=== PATIENT | male | born 1985 ===

== ENCOUNTER 2018-11-21 06:02 | Day surgery (SDC) | payer BC ==
--- NOTE | 2018-11-20 15:52 | Pre-Procedure Note/Attestation ---
Pre-Procedure Note/Attestation Complete Prior to Procedure Planned Procedure: bilateral Procedure Narrative: 1. Septoplasty 2. SMR inf right turbinate 3. SMR inf left turbinate Attestation I attest that I discussed the nature of the procedure; its benefits; risks and complications; and alternatives (and the risks and benefits of such alternatives ), prior to the procedure, with the patient (or the patient's legal congressional representative). I attest that, if there was a reasonable possibility of needing a blood transfusion, the patient (or the patient's legal congressional representative) was given the [facility] standardized written summary, pursuant to the Davide Cora Blood Safety Act ([place] Health and Safety Code # 1645, as amended). I attest that I re-evaluated the patient just prior to the surgery and that there has been no change in the patient's H&P: Anders Chery MD Nov 20, 2018 15:52
--- NOTE | 2018-11-20 15:56 | History & Physical ---
History of Present Illness General Date patient seen: Nov 16, 2018 Time patient seen: 09:45 Reason for Hospitalization: outpt surgery to repair deviated nasal septum and hypertrophied right and left inferior turbinates. Present Illness Allergies: Coded Allergies: No Known Allergies (Unverified , 11/20/18) Patient History History Provided By: Patient Healthcare decision maker patient Resuscitation status FUll code Advanced Directive on File Patient History Narrative Pt. has nasal airway obsturction not responding to over 1 month Flonase and antihistamines. Review of Systems Review of Symptoms General ROS: no weight loss or fever Psychological ROS: no depression or mood changes, no memory loss Ophthalmic ROS: no visual changes or eye irritation ENT ROS: no nasal congestion, hearing loss, dizziness. NASAL AIRWAY OBSTRUCTION. Allergy and Immunology ROS: no allergic symptoms or urticaria Hematological and Lymphatic ROS: no swollen glands, unusual bleeding or bruising Endocrine ROS: no polyuria, polydipsia, weight changes, temperature intolerance Respiratory ROS: no cough, shortness of breath, or wheezing Cardiovascular ROS: no chest pain or dyspnea on exertion Gastrointestinal ROS: denies abdominal pain, bright red blood in stool. Musculoskeletal ROS: no myalgias or arthralgias Neurological ROS: no TIA or stroke symptoms Dermatological ROS: no new or changing skin lesions, rashes or pruritis Physical Exam Physical Exam General appearance: alert, cooperative, no distress, appears stated age Head: Normocephalic, without obvious abnormality, atraumatic Eyes: conjunctivae/corneas clear. PERRL, EOM's intact. Fundi benign Throat: Lips, mucosa, and tongue normal. Teeth and gums normal NOSE: SEPTAL DEVIATION AND HYPERTROPHIED BILATERAL INFERIOR TURBINATES. Neck: supple, symmetrical, trachea midline, no adenopathy, thyroid: not enlarged, symmetric, no tenderness/mass/nodules, no carotid bruit and no JVD Lungs: clear to auscultation bilaterally Heart: regular rate and rhythm, S1, S2 normal, no murmur, click, rub or gallop Abdomen: soft, non-tender. Bowel sounds normal. No masses, no organomegaly Extremities: extremities normal, atraumatic, no cyanosis or edema Pulses: 2+ and symmetric Skin: Skin color, texture, turgor normal. No rashes or lesions Neurologic: Grossly normal NOT INDICATED-UNDER 36 YO HEALTHY MALE. Height (Feet): 5 Weight (Pounds): 195 Medications NONE Assessment/Plan Assessment/Plan: 1. Nasal septal deviation 2. Bilateral hypertrophied inferior turbinates MIPS Hospital declaration OBSERVATION level of care is warranted for this patient. Patient is a 33 year old who presents with nasal airway obstruction. Patient will be admitted as an outpt. , but if additional night(s) is/are necessary, patient will be converted to inpatient status for the entire hospitalization Disposition: Once the patient is stable to leave the hospital, I anticipate the patient will likely be discharged to the following environment: Estimated discharge date: 2 hours post surgery I spent 70 minutes on this patient's case, and minutes was dedicated to counseling and/or care coordination. Measure #407(Sepsis due to MSSA bacteremia): Age 18+ Patient treated with a beta-lactam antibiotic (Nafcillin, Oxacillin or Cefazolin) as definitive therapy. MEDICAL COMPLEXITY High complexity medical decision making (need 2/3 categories) Problem - need 4 points Acute/new problem with new plan for workup (4 points, 1 max) Acute/new problem without additional workup (3 points, 1 max) Unstable chronic problem actively being managed (2 point each, 2 max) Stable chronic problem actively being managed (1 point each, 2 max) Self-limited/transient process (constipation, muscle ache, etc) (1 point each , 2 max) Data - need 4 points Reviewed labs/imaging studies (1 points, 2 max) Independent review of imaging (EKG, xrays, etc) (2 points, 2 max) Discussed case with consult/other MD/RN (2 points, 2 max) High Risk - qualify if have one of the following: Severe exacerbation of acute problem, acute mental status change, IV narcotics , monitoring drug levels (vancomycin, INR, tacrolimus etc) Anders Chery MD Nov 20, 2018 15:56
[2018-11-21] VITALS (11 sets, daily range): BP systolic 123–133; BP diastolic 70–91
[~2018-11-21] VITALS: Ht 175.3 cm; Wt 86.2 kg
[2018-11-21] MEDS ORDERED: FLONASE ALLERG9.9 ML NS (06:32)
[2018-11-21] MEDS ORDERED: Bupivacaine w/Epi 0.5% 30ml Vial INJ ONE (07:02)
[2018-11-21] MEDS ORDERED: Lidocaine 1% 10mg/ml/Epi 0.005mg/ml 30ml vial INJ ONE (07:02)
[2018-11-21] MEDS ORDERED: Cocaine HCl 4% 4ml vial TOPIC ONE (07:02)
[2018-11-21] MEDS ORDERED: ceFAZolin sod 1 GM in D5W 55 ML IV ONE (07:15)
[2018-11-21] MEDS ORDERED: Propofol 200mg/20ml IV ONE (07:18)
[2018-11-21] MEDS ORDERED: Lidocaine 1% MPF 10mg/ml 5ml ONE (07:18)
[2018-11-21] MEDS ORDERED: Midazolam 2mg/2ml Inj ONE (07:18)
[2018-11-21] MEDS ORDERED: Ketorolac 30mg Inj ONE (07:18)
[2018-11-21] MEDS ORDERED: fentaNYL 100 mcg/2 mL IV ONE (07:18)
[2018-11-21] MEDS ORDERED: Dexamethasone 4mg/ml vial IVP ONE (07:30)
[2018-11-21] MEDS ORDERED: LR 1000ml 1,000 ML IVLG SCH (07:48)
--- NOTE | 2018-11-21 07:48 | Anethesia Preoperative Eval ---
Anesthesia Pre-op PMH/ROS General Date of Evaluation: Nov 21, 2018 Time of Evaluation: 07:25 Anesthesiologist: Jatin ASA Score: ASA 2 Mallampati Score Class I : Soft palate, uvula, fauces, pillars visible Class II: Soft palate, uvula, fauces visible Class III: Soft palate, base of uvula visible Class IV: Only hard plate visible Mallampati Classification: Class II Surgeon: Vik Diagnosis: Nasal septum deviation Surgical Procedure: Septoplasty Anesthesia History: none Family History: no anesthesia problems Allergies: Coded Allergies: No Known Allergies (Unverified , 11/21/18) Medications: see eMAR Patient NPO?: Yes Past Medical History Cardiovascular: Denies: HTN, CAD, AL, valve dz, arrhythmia, other Pulmonary: Denies: asthma, COPD, DIMITRIOS, other Gastrointestinal/Genitourinary: Reports: GERD - mild; Denies: CRI, ESRD, other Neurologic/Psychiatric: Denies: dementia, CVA, depression/anxiety, TIA, other Endocrine: Denies: DM, hypothyroidism, steroids, other HEENT: Denies: cataract (L), cataract (R), glaucoma, PENOBSCOT (L), PENOBSCOT (R), other Hematology/Immune: Denies: anemia, DVT, bleeding disorder, other Musculoskeletal/Integumentary: Denies: OA, RA, DJD, DDD, edema, other PMH Narrative: as above PSxH Narrative: none Anesthesia Pre-op Phys. Exam Physician Exam Last Vital Signs Date Time Temp Pulse Resp B/P (MAP) Pulse Ox O2 Delivery O2 Flow Rate FiO2 11/21/18 06:36 Room Air 11/21/18 06:35 97.0 53 18 123/70 98 Constitutional: NAD Neurologic: CN 2-12 intact Cardiovascular: RRR, no M/R/G Respiratory: CTA Gastrointestinal: S/NT/ND Airway Exam Mallampati Score: Class II MO: full Neck: Flexible ROM: full Teeth: intact Dentures: no upper, no lower Anesthesia Pre-op A/P Risk Assessment & Plan Assessment: ASA 2 Plan: GA with LMA PONV prevention Status Change Before Surgery: No Pre-Antibiotics Drug: Ancef 1gr. Given Within 1 Hr of Incision: Yes Time Given: 08:05 Usama Steiner MD Nov 21, 2018 07:48
[2018-11-21] MEDS ORDERED: Ketorolac 30mg Inj IV PRN (08:00)
[2018-11-21] MEDS ORDERED: Sterile Water Irrig 1000ml IRRIG ONE (08:00)
[2018-11-21] MEDS ORDERED: LR 1000ml ONE (08:00)
[2018-11-21] MEDS ORDERED: NS Irrig 1000ml ONE (08:00)
[2018-11-21] MEDS ORDERED: DiphenhydrAMINE 50mg/ml Inj IVP PRN (08:00)
[2018-11-21] MEDS ORDERED: Meperidine 50mg/ml Inj(FOR RIGORS ONLY) IV PRN (08:00)
[2018-11-21] MEDS ORDERED: Metoclopramide 10mg/2ml Inj IVP PRN ×2 (08:00→09:00)
--- NOTE | 2018-11-21 08:03 | Brief Operative Note ---
Immediate Post Operative Note Operative Note Chief Complaint: nasal airway obstruction Pre-op Diagnosis: Septal deviation Hypertrophied inf. turbinates Procedure: Septoplasty SMR bilateral inf. turbinates Post-op Diagnosis: same as pre-op Surgeon: Anders Chery MD [employer] Faculty Member: none Additional Surgeons: none Anesthesiologist: Holger Anesthesia: general Specimen: none Complications: none Condition: stable Fluids: D5LR Estimated Blood Loss: volume - 25 cc Drains: none Packing: Sino-nasal gel Implant(s) used?: No Anders Chery MD Nov 21, 2018 08:03
--- NOTE | 2018-11-21 08:07 | Discharge Instructions ---
Discharge Instructions Discharge Instructions Follow up with: next week-Dr. Chery's office. Pt. already has appt. Diet: regular Resume Normal Activity?: No Activity: light activity Pneumonia Vaccine: pt refused vaccine Influenza Vaccine (Feb to Jul): pt refused vaccine Follow Up Orders Pt. has printed instructions and Rx given to him at pre op meeting last week. Return to Work/School on: Dec 05, 2018 - 12/05/18 Special Instructions ice to face x 48 hours For Surgical Patients Dressing Care: may change For Congestive Heart Failure Reminder Report to your physician any weight gain of 5 pounds or more in one week. Anders Chery MD Nov 21, 2018 08:07
[2018-11-21] MEDS ORDERED: Dexamethasone 4mg/ml vial ONE (08:11)
--- NOTE | 2018-11-21 08:50 | Immediate Post-Op Evaluation ---
Immediate Post-Op Evalulation Immediate Post-Op Evalulation Procedure: Septoplasty Turbinate ablasion Date of Evaluation: Nov 21, 2018 Time of Evaluation: 08:49 IV Fluids: 800 Blood Products: none Estimated Blood Loss: min Urinary Output: none Blood Pressure Systolic: 132 Blood Pressure Diastolic: 77 Pulse Rate: 72 Respiratory Rate: 20 O2 Sat by Pulse Oximetry: 98 Temperature (Fahrenheit): 97.8 Pain Score (1-10): 1 Nausea: No Vomiting: No Complications none Patient Status: awake, patent, none Hydration Status: adequate Usama Steiner MD Nov 21, 2018 08:50
[2018-11-21] MEDS ORDERED: HYDROmorphone 1mg/ml Carpuject SUBQ PRN (09:00)
[2018-11-21] MEDS ORDERED: HYDROcodone/Acetamin 5/325 tab ORAL PRN (09:00)
--- NOTE | 2018-11-21 09:19 | 48 Hour Post Anesthesia Eval ---
Post Anesthesia Evaluation Procedure: Septoplasty Turbinate ablasion Date of Evaluation: Nov 21, 2018 Time of Evaluation: 09:17 Blood Pressure Systolic: 134 0: 72 Pulse Rate: 68 Respiratory Rate: 20 Temperature (Fahrenheit): 97.8 O2 Sat by Pulse Oximetry: 98 Airway: patent Nausea: No Vomiting: No Pain Intensity: 1 Hydration Status: adequate Cardiopulmonary Status: stable Mental Status/LOC: patient returned to baseline Follow-up Care/Observations: n/a Post-Anesthesia Complications: none Follow-up care needed: ready to discharge Usama Steiner MD Nov 21, 2018 09:19
--- NOTE | 2018-11-21 17:15 | Operative Note - Dictated ---
SURGEON: Anders Chery M.D. MASH TUB COOKER: None. ANESTHESIOLOGIST: Holger ANESTHESIA: General LMA as well as 4 mL of 4% topical cocaine placed on four nasal pledgets, two on either nostril accounted for at the end of the case as well as 10 mL 50:50 mixture of 1% lidocaine with 1:100,000 epinephrine and Sensorcaine 0.5% with 1:200,000 epinephrine. INDICATION FOR SURGERY: Nasal airway obstruction secondary to nasal septal deviation to the right and hypertrophied right and left inferior turbinates. He has failed nasal steroids and antihistamines after over a month using each. PREOPERATIVE DIAGNOSES: 1. Septal deviation. 2. Hypertrophied right inferior turbinate. 3. Hypertrophied left inferior turbinate. POSTOPERATIVE DIAGNOSES: 1. Septal deviation. 2. Hypertrophied right inferior turbinate. 3. Hypertrophied left inferior turbinate. FINDINGS: 1. Septal deviation. 2. Hypertrophied right inferior turbinate. 3. Hypertrophied left inferior turbinate. PROCEDURE: 1. Septoplasty. 2. Submucous resection of the right inferior turbinate. 3. Submucous resection of the left inferior turbinate. TECHNIQUE: The patient prepped and draped in usual manner. A time-out was performed and all agreed as to the procedures and supplies required. Initially utilizing radiofrequency, I was able to do two passes on either inferior turbinates with #45 degree blade covered with saline gel setting of 6, 10 seconds each pass. I then outfractured the inferior turbinates bilaterally. I then proceeded to make a Hildreth incision on the right septum. I elevated subperiosteally with dental elevator on either side. I was then able to isolate the septum utilizing small angled scissors cutting 4 mm above the base of the septum and then using a small osteotome to remove the vomer in the septum at the base. I then use a straight Tesha and Leonela to remove septal cartilage and bone. Additionally some vomer was removed as well on the right hand side. I then closed this with a 5-0 plain suture. Sinonasal Foam, one syringe between the two nostrils was placed. Mustache dressing was placed. ESTIMATED BLOOD LOSS: 25 mL. COMPLICATIONS: None. DRAINS: None. COUNTS: Sponge and needle count was correct according to all in the room. Anders Chery M.D. DR: [place] JOB#: [id number] CC: SOCRATES
== END 2018-11-21 10:55 | disposition home or self-care (01) ==
LOC: SUR 06:02
DX: J34.2 Deviated nasal septum (principal); J34.3 Hypertrophy of nasal turbinates; K21.9 Gastro-esophageal reflux disease without esophagitis
CPT/HCPCS: 30140; 30520; J0690; J1100; J1885; J2250; J2405; J2704; J3010; 94003; 94150